=== PATIENT | female | born 1970 ===

== ENCOUNTER 2019-01-02 05:50 | Day surgery (SDC) | payer OTHER ==
[~2019-01-02 05:50] MED LIST: BISOPROLOL FUMAR5 MG PO; CARAFA; CARAFATE1 GM/10 ML PO; HYZAAR 100-12.1 EACH PO; LOSARTAN; LOSARTAN-HCTZ1 EACH PO; OMEPRAZOL PO; OMEPRAZOLE20 M1 PO; PEPCID20 MG PO; [UNRECOGNIZED DRUG - OTHER] PO
[2019-01-02] MEDS ORDERED: COLACE100 MG PO ×2 (07:59)
[2019-01-02] MEDS ORDERED: PERCOCET 5-3251 EACH PO ×2 (07:59)
== END 2019-01-02 13:05 | disposition home or self-care (01) ==
LOC: CIR.AMB 05:50
DX: K60.1 Chronic anal fissure (principal)

== ENCOUNTER 2019-01-05 18:43 | Emergency (ER) | payer OTHER ==
[~2019-01-05] VITALS: Ht 165.1 cm; Wt 82.1 kg
[~2019-01-05 18:43] MED LIST changes: +COLACE100 MG PO; +PERCOCET 5-3251 EACH PO
== END 2019-01-05 23:41 | disposition home or self-care (01) ==
LOC: ER 18:43
DX: K59.09 Other constipation (principal)

== ENCOUNTER 2019-06-15 07:42 | Day surgery (SDC) | payer OTHER | END 2019-06-15 13:25 | disposition home or self-care (01) | LOC: AMB-ENDOS 07:42 | DX: D12.5 Benign neoplasm of sigmoid colon (principal) ==